=== PATIENT | male | born 1985 | race Caucasian/White ===

== ENCOUNTER → 2024-04-14 | Outpatient (CLI) | payer OTHER ==
[2024-04-18 20:06] LABS: TESTOSTERONE, FREE BY DIALYSIS 42.9 pg/mL (47.0-244.0); TESTOSTERONE, TOTAL MASS SPEC 212.6 ng/dL (300.0-1080.0)
== END | disposition home or self-care (01) ==
LOC: LAB SHORT 14:01
PROVIDERS: Nurse Practitioner Family
DX: R53.81 Other malaise (principal); R53.83 Other fatigue
CPT/HCPCS: 84402; 84403